=== PATIENT | female | born 1980 | race American Indian/Alaskan Native ===

== ENCOUNTER 2019-11-12 21:04 | Emergency (ER) | payer MEDICAID ==
[2019-11-12] MEDS ORDERED: ACETAMINOPHEN 500 MG TAB PO ONE (21:27)
--- NOTE | 2019-11-12 22:10 | XRay Report ---
CHEST 1 VIEW INDICATION: fever cough COMPARISON: None FINDINGS: Support devices: None Heart: Normal Lungs/Pleura: No acute pulmonary or pleural findings. IMPRESSION: 1. No acute disease. Signer Name: Demian Choudhury MD Signed: 11/12/2019 10:05 PM Workstation Name: [id number]
--- NOTE | 2019-11-12 22:33 | Emergency Department Report ---
ED Fever HPI - General Chief Complaint: Upper Respiratory Infection Stated Complaint: YENNIFER,FLU SX Time Seen by Provider: 11/12/19 21:27 Source: patient Exam Limitations: no limitations - History of Present Illness Initial Comments: Chief complaint: Fever cough HPI: This is a 39-year-old female with history of TIA, schizoaffective disorder, anxiety who presents with fever cough headache body aches. Symptoms began today. 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 Her former patient returned after eloping 2-1/2 weeks ago. She is concerned that this patient may have exposed her to coronavirus. She has nonproductive cough. No other sick contacts. She has been exposed to public contacts while shopping at local retail centers. Timing/Duration: just prior to arrival Fever Severity/Quality: subjective Associated Symptoms: cough, headache, muscle aches ED Review of Systems ROS: Stated complaint: YENNIFER,FLU SX Other details as noted in HPI Constitutional: fever, malaise Respiratory: cough. denies: shortness of breath Cardiovascular: denies: chest pain Gastrointestinal: denies: abdominal pain, nausea, vomiting Musculoskeletal: denies: back pain Neurological: headache ED Past Medical Hx - Past Medical History Previous Medical History?: Yes Hx CVA: Yes (TIA) Hx Seizures: Yes Hx Psychiatric Treatment: Yes (schizo depression anxiety.) - Surgical History Past Surgical History?: Yes Hx Appendectomy: Yes Additional Surgical History: C section. surgery for endometriosis. right foot. ACL - Social History Smoking Status: Never Smoker Substance Use Type: None ED Physical Exam - General Limitations: No Limitations General appearance: alert, in no apparent distress - Head Head exam: Present: atraumatic, normocephalic - Eye Eye exam: Present: normal appearance - Neck Neck exam: Present: normal inspection, full ROM - Respiratory Respiratory exam: Present: normal lung sounds bilaterally. Absent: respiratory distress, wheezes, rales, rhonchi - Cardiovascular Cardiovascular Exam: Present: regular rate, normal rhythm, normal heart sounds. Absent: systolic murmur, diastolic murmur, rubs, gallop - GI/Abdominal GI/Abdominal exam: Present: soft, normal bowel sounds. Absent: distended, tenderness, guarding, rebound - Extremities Exam Extremities exam: Present: normal inspection - Neurological Exam Neurological exam: Present: alert, oriented X3 - Psychiatric Psychiatric exam: Present: normal affect, normal mood - Skin Skin exam: Present: warm, dry, intact, normal color. Absent: rash ED Course Vital Signs 11/12/19 11/12/19 11/12/19 21:08 21:28 21:37 Temperature 102.4 F H 102.3 F H Pulse Rate 96 H 88 Respiratory 18 20 19 Rate Blood Pressure 152/99 Blood Pressure 142/91 [Left] O2 Sat by Pulse 98 100 99 Oximetry 11/12/19 21:49 Temperature Pulse Rate Respiratory 18 Rate Blood Pressure Blood Pressure [Left] O2 Sat by Pulse Oximetry ED Medical Decision Making - Radiology Data Radiology results: report reviewed Chest radiograph: No acute findings according to radiology impression - Medical Decision Making Ms. Bridges presents with fever cough. I strongly suspect COVID 19 coronavirus infection. She understands to self quarantine self isolate for the next 14 days. She understands return precautions. Chest x-ray normal. Patient appears well. Patient appears nontoxic. Currently no respiratory distress. Critical care attestation.: If time is entered above; I have spent that time in minutes in the direct care of this critically ill patient, excluding procedure time. ED Disposition Clinical Impression: Suspected 2019 novel coronavirus infection Disposition: DC-01 TO HOME OR SELFCARE Is pt being admited?: No Does the pt Need Aspirin: No Condition: Stable Instructions: COVID-19 Additional Instructions: You must self isolate, self quarantine for the next 14 days. Please avoid all contact with other individuals. Forms: Work/School Release Form(ED)
[2019-11-12 22:42] VITALS: BP 143/93
== END 2019-11-12 22:49 | disposition home or self-care (01) ==
LOC: ED 21:04
DX: F25.1 Schizoaffective disorder, depressive type (principal); F41.9 Anxiety disorder, unspecified; R51 Headache; Z86.73 Personal history of transient ischemic attack (TIA), and cerebral infarction without residual deficits; Z86.69 Personal history of other diseases of the nervous system and sense organs; Z90.49 Acquired absence of other specified parts of digestive tract; Z98.890 Other specified postprocedural states; Z79.899 Other long term (current) drug therapy; Z88.6 Allergy status to analgesic agent; Z88.8 Allergy status to other drugs, medicaments and biological substances; Z20.828 Contact with and (suspected) exposure to other viral communicable diseases
CPT/HCPCS: 71045

== ENCOUNTER 2020-01-21 09:59 | Emergency (ER) | payer MEDICAID ==
[2020-01-21 10:32] VITALS: BP 139/84
== END 2020-01-21 11:00 | disposition left against medical advice (07) ==
LOC: ED 09:59
DX: R56.9 Unspecified convulsions (principal); Z53.21 Procedure and treatment not carried out due to patient leaving prior to being seen by health care provider

== ENCOUNTER 2020-03-12 10:16 | Emergency (ER) | payer MEDICAID ==
[2020-03-12] MEDS ORDERED: ACETAMINOPHEN 500 MG TAB PO ONE (10:32)
--- NOTE | 2020-03-12 10:37 | Emergency Department Report ---
ED Female HPI - General Stated complaint: ANXIETY Time Seen by Provider: 03/12/20 10:31 Source: patient Mode of arrival: Ambulatory Limitations: No Limitations - History of Present Illness Initial comments: This is a 39-year-old female with history of anxiety, depression, seizure disorder, TIA who is currently 16 weeks 6 days by estimated due date August 21, 2020 who presents for anxiety attack. She has had anxiety because of "everything that I am going through". She admits to depression. She denies suicidal homicidal ideation. Due to her she is not taking medication for mood stabilization. She is followed by air sampling and monitoring Dr. Carr. She plans to deliver her baby at [facility]. She has mild lower abdominal pain. She has achy pain. She denies vaginal bleeding. However she has not felt the baby move in 2 days. MD Complaint: other (Lower abdominal pain 16 weeks 6 days ) -: Gradual, days(s) (2) Severity: mild Quality: aching Consistency: constant Improves with: none Worsens with: none Are you Now?: Yes Associated Symptoms: other (Anxiety depression) - Related Data Allergies Allergy/AdvReac Type Severity Reaction Status Date / Time aspirin Allergy Anaphylaxis Verified 01/21/20 10:27 ibuprofen Allergy Anaphylaxis Verified 01/21/20 10:27 ciprofloxacin [From Cipro] AdvReac Nausea Verified 01/21/20 10:27 lamotrigine [From Lamictal] AdvReac Dizziness Verified 01/21/20 10:27 ED Review of Systems ROS: Stated complaint: ANXIETY Other details as noted in HPI Comment: All other systems reviewed and negative Constitutional: denies: fever, malaise Respiratory: denies: cough, shortness of breath Cardiovascular: denies: chest pain Gastrointestinal: abdominal pain. denies: nausea, vomiting, diarrhea ED Past Medical Hx - Past Medical History Previous Medical History?: Yes Hx CVA: Yes (TIA) Hx Seizures: Yes Hx Psychiatric Treatment: Yes (schizo depression anxiety.) - Surgical History Past Surgical History?: Yes Hx Appendectomy: Yes Additional Surgical History: C section. surgery for endometriosis. right foot. ACL - Social History Smoking Status: Never Smoker Substance Use Type: None ED Physical Exam - General Limitations: No Limitations General appearance: alert, in no apparent distress, other (Tearful obviously upset) - Head Head exam: Present: atraumatic, normocephalic - Eye Eye exam: Present: normal appearance - ENT ENT exam: Present: mucous membranes moist - Neck Neck exam: Present: normal inspection, full ROM - Respiratory Respiratory exam: Present: normal lung sounds bilaterally. Absent: respiratory distress, wheezes, rales, rhonchi, stridor - Cardiovascular Cardiovascular Exam: Present: regular rate, normal rhythm, normal heart sounds. Absent: systolic murmur, diastolic murmur, rubs, gallop - GI/Abdominal GI/Abdominal exam: Present: soft, normal bowel sounds. Absent: distended, tenderness, guarding, rebound - Extremities Exam Extremities exam: Present: normal inspection - Neurological Exam Neurological exam: Present: alert, oriented X3 - Psychiatric Psychiatric exam: Present: normal affect, depressed. Absent: homicidal ideation, suicidal ideation - Skin Skin exam: Present: warm, dry, intact, normal color. Absent: rash ED Course Vital Signs 03/12/20 03/12/20 03/12/20 10:16 10:41 18:29 Temperature 98.3 F Pulse Rate 86 66 Respiratory 18 18 16 Rate Blood Pressure 124/77 Blood Pressure 135/83 [Left] O2 Sat by Pulse 99 100 Oximetry ED Medical Decision Making - Lab Data Result diagrams: 03/12/20 11:47 03/12/20 13:20 - Radiology Data Radiology results: report reviewed ULTRASOUND OBSTETRIC INDICATION: abdominal pain . TECHNIQUE: Transabdominal. COMPARISON: None available. FINDINGS: There is a single intrauterine . Biparietal Diameter = 3.4 cm Head Circumference = 12.4 cm Abdominal Circumference = 10.7 cm Femur Length = 1.5 cm Average Ultrasound Age (AUA) = 16 weeks, 0 day(s). Heart Rate: 133 beats per minute. Position: cephalic. Cervix: closed. Length in cm (if measured): 3.7 Placenta: anterior and free of the os. Grade 0. Amniotic Fluid Volume: normal Maternal Adnexa: No significant abnormality. IMPRESSION: 1. Single, living intrauterine with estimated sonographic age of 16 weeks, 0 day(s). 2. No significant sonographic abnormality. - Medical Decision Making 1. abdominal pain, : IUP viable, no signs of peritonitis: fever, tenderness, severe pain. I do not suspect acute inflammatory process such as appendicitis or cholecystitis 2. Patient's main concern at this time is severe depression and anxiety. She exclaims, "How can I take care of anyone if I can not take care of myself." She has not been paid for 4 months of work. She has worked in a personal longterm. She has other problems at home causing her severe stress. She is not able to take mood stablizers during . I have reviewed labs obtained, chemistry, serum toxicology, urinalysis, UDS all unremarkable. Patient has anemia with mild leukocytosis. I do not suspect hemorrhage or sepsis. Patient does not have signs of infection. Patient is medically clear for psychiatric care. She has requested outpatient resources. Treatment nurse has provided a list of clinics. She is discharged home. Critical care attestation.: If time is entered above; I have spent that time in minutes in the direct care of this critically ill patient, excluding procedure time. ED Disposition Clinical Impression: Abdominal pain affecting , antepartum, Depression Disposition: DC-01 TO HOME OR SELFCARE Is pt being admited?: No Does the pt Need Aspirin: No Condition: Stable [facility] - 3-5 Days
[2020-03-12 12:00] LABS: Bilirubin,Urine NEG (Negative); Blood,Urine NEG (Negative); Color,Urine Yellow (Yellow); Hyaline Casts,Urine 1 /LPF; Mucus,Urine FEW /HPF; Protein,Urine <15 mg/dL mg/dL (Negative)
--- NOTE | 2020-03-12 12:02 | Ultrasound Report ---
ULTRASOUND OBSTETRIC INDICATION: abdominal pain . TECHNIQUE: Transabdominal. COMPARISON: None available. FINDINGS: There is a single intrauterine . Biparietal Diameter = 3.4 cm Head Circumference = 12.4 cm Abdominal Circumference = 10.7 cm Femur Length = 1.5 cm Average Ultrasound Age (AUA) = 16 weeks, 0 day(s). Heart Rate: 133 beats per minute. Position: cephalic. Cervix: closed. Length in cm (if measured): 3.7 Placenta: anterior and free of the os. Grade 0. Amniotic Fluid Volume: normal Maternal Adnexa: No significant abnormality. IMPRESSION: 1. Single, living intrauterine with estimated sonographic age of 16 weeks, 0 day(s). 2. No significant sonographic abnormality. Signer Name: Dionicio Palumbo MD Signed: 03/12/2020 11:57 AM Workstation Name: [id number]
[2020-03-12 12:22] LABS: Hematocrit 27.5 % (30.3-42.9); Hemoglobin 8.7 gm/dl (10.1-14.3); Mean Corpuscular HGB Conc 32 % (30-34); Mean Corpuscular Volume 76 fl (79-97); Platelet Count 249 K/mm3 (140-440); Red Blood Count 3.61 M/mm3 (3.65-5.03)
[2020-03-12 12:25] LABS: Red Cell Distribution Width 22.3 % (13.2-15.2)
[2020-03-12 12:52] LABS: Blood Urea Nitrogen 6 mg/dL (7-17); Calcium 9.5 mg/dL (8.4-10.2); Hemolysis Index 4
[2020-03-12 13:00] LABS: BUN/Creatinine Ratio 12
[2020-03-12 13:12] LABS: Anisocytosis 1+; Band Neutrophils # (Manual) 0.1 K/mm3; Basophils % (Manual) 0 % (0.0-1.8); Hypochromasia 1+; Platelet Estimate Consistent w Auto; Total Cells Counted 100
[2020-03-12 13:20] LABS: Amphetamine Screen,Urine PRESUMPTIVE NEGATIVE; Benzodiazepines Screen,Urine PRESUMPTIVE NEGATIVE; Cannabinoid Screen,Urine PRESUMPTIVE NEGATIVE; Cocaine Screen,Urine PRESUMPTIVE NEGATIVE; Methadone Screen,Urine PRESUMPTIVE NEGATIVE; Opiate Screen,Urine PRESUMPTIVE NEGATIVE
[2020-03-12 16:19] LABS: Alanine Aminotransferase 8 units/L (7-56); BUN/Creatinine Ratio 12; Blood Urea Nitrogen 6 mg/dL (7-17); Calcium 9.4 mg/dL (8.4-10.2); Hemolysis Index 3
[2020-03-12 18:30] VITALS: BP 135/83
== END 2020-03-12 19:06 | disposition home or self-care (01) ==
LOC: ED 10:16
DX: O26.892 Other specified pregnancy related conditions, second trimester (principal); R10.30 Lower abdominal pain, unspecified; O99.342 Other mental disorders complicating pregnancy, second trimester; Z3A.16 16 weeks gestation of pregnancy; Z86.69 Personal history of other diseases of the nervous system and sense organs; Z86.73 Personal history of transient ischemic attack (TIA), and cerebral infarction without residual deficits; F41.9 Anxiety disorder, unspecified; Z90.49 Acquired absence of other specified parts of digestive tract; Z98.890 Other specified postprocedural states; Z88.6 Allergy status to analgesic agent; Z88.8 Allergy status to other drugs, medicaments and biological substances
CPT/HCPCS: 36415; 76805; 80048; 80053; 80307; 80320; 81001; 85007; 85025; G0480